=== PATIENT | female | born 1985 | race Caucasian/White ===

== ENCOUNTER → 2017-04-07 | Outpatient (CLI) | payer MEDICAID, OTHER ==
--- NOTE | 2017-04-07 15:00 | US ---
EXAMINATION TYPE: US OB <= 14 wk fetus DATE OF EXAM: 04/07/2017 COMPARISON: NONE CLINICAL HISTORY: O76 ABN OR ABSENT HEART TONES. larger habitus, unable to obtain heart rate at offic e EXAM PERFORMED: Transabdominal (TA) EXAM MEASUREMENTS: GESTATIONAL AGE / DATING Physician Established: not established yet Dates by LMP: (10 weeks/6 days) EDC: 10/28/2017 Dates by First Scan: no previous Dates by Current Scan for: (9 weeks/0 days) EDC: 11/10/2017 MATERNAL ANATOMY Uterus: 12.8 x 6.1 x 8.2cm, antegrade, wnl Right Ovary: 3.5 x 2.2 x 3.0cm, wnl Left Ovary: 2.8 x 1.6 x 1.8cm, wnl Post CDS / Adnexa: wnl Presence of free fluid: none seen GESTATION / SURVEY CRL: 2.3cm (9 weeks/0 days) MSD: wnl Yolk Sac (normal less than 6mm): 5mm Heart Rate: 176 bpm Rhythm: Normal IUP: Viable IUP Date of LMP: 01/21/2017 Single live intrauterine gestation is present as gestational sac, yolk sac, and pole are seen. No free fluid is seen in pelvic cul-de-sac. Both ovaries are identified. No suspicious extra ovarian adnexal mass is seen. IMPRESSION: Single live intrauterine gestation is confirmed, mean crown-rump length is 2.3 cm corresponding to 9 week 0 day old fetus.
== END | disposition home or self-care (01) ==
LOC: RADUSWWP 14:22
PROVIDERS: ATTEND Obstetrics & Gynecology
DX: O76 Abnormality in fetal heart rate and rhythm complicating labor and delivery (principal); Z3A.09 9 weeks gestation of pregnancy
CPT/HCPCS: 76801

== ENCOUNTER → 2017-04-25 | Outpatient (CLI) | payer MEDICAID, OTHER ==
[2017-04-25 12:27] LABS: CH 30.5; CHCM 34.3; HCT 39.8 % (34.0-46.0); HDW 2.56; HGB 13.4 gm/dL (11.4-16.0); MCH 30.1 pg (25.0-35.0); MCHC 33.7 g/dL (31.0-37.0); MCV 89.3 fL (80.0-100.0); Mean Platelet Volume 7.2; RBC 4.46 m/uL (3.80-5.40); WBC 11.1 k/uL (3.8-10.6)
[2017-04-25 12:56] LABS: Hepatitis B Surface Ag Index 0.06
[2017-04-25 15:09] LABS: Hemoglobin A1C 5.3 % (4.2-6.1)
[2017-04-25 15:55] LABS: Treponemal Ab Non-Reactive (Non-Reactive)
== END | disposition home or self-care (01) ==
LOC: LABWHC1 10:39
PROVIDERS: ATTEND Obstetrics & Gynecology
DX: Z34.90 Encounter for supervision of normal pregnancy, unspecified, unspecified trimester (principal)
CPT/HCPCS: 36415; 82950; 83036; 85027; 86762; 86780; 86850; 86900; 86901; 87086; 87340; 87390

== ENCOUNTER → 2017-08-27 | Outpatient (CLI) | payer MEDICAID, OTHER ==
[2017-08-27 12:49] LABS: Glucose 3 Hour, Gest 114 mg/dL
== END | disposition home or self-care (01) ==
LOC: LABWHC1 08:31
PROVIDERS: ATTEND Obstetrics & Gynecology
DX: O24.419 Gestational diabetes mellitus in pregnancy, unspecified control (principal); Z3A.00 Weeks of gestation of pregnancy not specified
CPT/HCPCS: 36415; 82951; 82952

== ENCOUNTER 2017-11-07 07:00 | Inpatient (IN) | payer MEDICAID, OTHER ==
[2017-11-05 14:59] VITALS: BMI 48.7
[2017-11-07] MEDS ORDERED: CITRIC ACID-SODIUM CITRATE 15 ML CUP PO ONE (08:10)
[2017-11-07] MEDS ORDERED: ceFAZolin IN SWFI 2 GM/20 ML SYRINGE IVP ONE (08:30)
[2017-11-07] MEDS: LACTATED RINGERS 1,000 ML IV SCH ×3 (08:55→20:08)
[2017-11-07 09:12] LABS: Basophils % (A) 0 %; Eosinophils # (A) 0.2 k/uL (0-0.7); Eosinophils % (A) 1 %; HCT 31.7 % (34.0-46.0); HGB 10.4 gm/dL (11.4-16.0); Hypochromasia Slight; Lymphocytes % (A) 16 %; MCH 27.7 pg (25.0-35.0); MCHC 32.8 g/dL (31.0-37.0); MCV 84.5 fL (80.0-100.0); Mean Platelet Volume 8.2; Monocytes # (A) 0.7 k/uL (0-1.0); Monocytes % (A) 5 %; Neutrophils # (A) 9.7 k/uL (1.3-7.7); Neutrophils % (A) 76 %; Platelet Count 262 k/uL (150-450); Poikilocytosis Slight; RBC 3.75 m/uL (3.80-5.40); RDW 14.1 % (11.5-15.5); WBC 12.8 k/uL (3.8-10.6)
--- NOTE | 2017-11-07 10:03 | P.HPOB ---
History of Present Illness H&P Date: 11/07/17 Chief Complaint: 39+ weeks, previous 2, undesired fertility The patient is a 32-year-old 3 para 2001 who presents today for repeat low transverse section with intraoperative bilateral tubal occlusion using Filshie clips. She has previously undergone 2 sections and requested repeat. This has been entirely uncomplicated. Group B strep status is negative. She presents at 39-4/7 weeks as established by a 9 week ultrasound. Obstetrical history: 3 para 2001 with 2 term sections without complications. EDC of 11/10/2017 was established by a 9 week ultrasound. Laboratory workup demonstrates a blood type of A+ with a negative antibody screen. Rubella status is immune. Remainder of the laboratory workup was within normal limits. Early Glucola was normal. Second trimester Glucola was elevated but followed up by a normal three-hour glucose tolerance test. Group B strep status is negative. Gynecologic history: Unremarkable with no history of any infections to include STDs. Review of Systems Review of systems is confined to history of present illness. Past Medical History Past Medical History: GERD/Reflux Additional Past Medical History / Comment(s): KIDNEY STONES History of Any Multi-Drug Resistant Organisms: None Reported Past Surgical History: Section Additional Past Surgical History / Comment(s): KIDNEY STONES REMOVED 2009, section x2 Past Anesthesia/Blood Transfusion Reactions: No Reported Reaction Past Psychological History: No Psychological Hx Reported Smoking Status: Never smoker Past Alcohol Use History: None Reported Past Drug Use History: None Reported - Past Family History Mother Family Medical History: No Reported History Father Family Medical History: Diabetes Mellitus, Hyperlipidemia, Hypertension Medications and Allergies Home Medications Medication Instructions Recorded Confirmed Type Omeprazole [PriLOSEC] 20 mg PO AC-BRKFST 11/05/17 11/07/17 History Pnv No.95/Ferrous Fum/Folic AC 1 each PO DAILY 11/05/17 11/07/17 History [ Multivitamin Tablet] Allergies Allergy/AdvReac Type Severity Reaction Status Date / Time No Known Allergies Allergy Verified 11/05/17 14:54 Exam - Vital Signs Vital signs: Vital Signs Temp Pulse Resp BP Pulse Ox 11/07/17 08:14 98.3 F 108 H 16 123/79 98 Intake and Output 03/01/18 03/02/18 03/02/18 22:59 06:59 14:59 Other: Weight 117.027 kg Patient Weight 11/08/17 06:59 Weight 117.027 kg In general, this is a well-developed, moderately obese white female in no acute distress. Her heart has a regular rhythm and rate without murmur. Her lungs are clear to auscultation bilaterally in all alva. Her abdomen is gravid, moderately obese, nondistended, has normal active bowel sounds, is soft, nontender, and without any palpable masses aside from uterine fundus. Her extremities without any cyanosis, clubbing, or significant edema and are nontender to palpation bilaterally. Digital cervical examination is deferred. Results Result Diagrams: 11/07/17 08:55 Abnormal Lab Results - Last 24 Hours (Table) 11/07/17 Range/Units 08:55 WBC 12.8 H (3.8-10.6) k/uL RBC 3.75 L (3.80-5.40) m/uL Hgb 10.4 L (11.4-16.0) gm/dL Hct 31.7 L (34.0-46.0) % Neutrophils # 9.7 H (1.3-7.7) k/uL Assessment and Plan (1) Family planning Current Visit: Yes Status: Acute Code(s): Z30.09 - ENCOUNTER FOR OTH GENERAL CNSL AND ADVICE ON CONTRACEPTION SNOMED Code(s): 870077701 (2) Previous section Current Visit: Yes Status: Acute Code(s): Z98.891 - HISTORY OF UTERINE SCAR FROM PREVIOUS SURGERY SNOMED Code(s): 214628306 (3) Term Current Visit: Yes Status: Acute Code(s): Z34.80 - ENCOUNTER FOR SUPRVSN OF NORMAL , UNSP TRIMESTER SNOMED Code(s): 51599354 Plan: The patient is admitted for repeat low transverse section with intraoperative bilateral tubal occlusion using Filshie clips. The risks and complications of the procedures have been thoroughly discussed including the permanent nature of tubal ligation. She has understood all this and agreed to proceed.
[2017-11-07] MEDS ORDERED: KETOROLAC 30 MG/ML 1 ML VIAL ONE (10:11)
[2017-11-07] MEDS ORDERED: OXYTOCIN 10 UNIT/ML 1 ML VIAL ONE (10:11)
[2017-11-07] MEDS ORDERED: MIDAZOLAM 2 MG/2 ML VIAL ONE (10:11)
[2017-11-07] MEDS ORDERED: ONDANSETRON 4 MG/2 ML VIAL ONE (10:11)
[2017-11-07] MEDS ORDERED: PHENYLEPHRINE-0.9% NACL SYG 1 MG/10 ML SYRINGE ONE (10:11)
[2017-11-07] MEDS ORDERED: MORPHINE SULFATE (PF) 0.3 MG/0.3 ML SYR ONE (10:11)
[2017-11-07] MEDS ORDERED: MORPHINE SULFATE 4 MG/ML SYRINGE IVP PRN (10:54)
[2017-11-07] MEDS ORDERED: KETOROLAC 30 MG/ML 1 ML VIAL IVP PRN (10:54)
[2017-11-07] MEDS ORDERED: NALOXONE 0.4 MG/ML 1 ML VIAL IV PRN ×2 (10:54→11:25)
[2017-11-07] MEDS ORDERED: ONDANSETRON 4 MG/2 ML VIAL IVP PRN (10:54)
[2017-11-07] MEDS ORDERED: NALBUPHINE 10 MG/ML AMPUL IV PRN (10:54)
[2017-11-07] MEDS ORDERED: CELLULOSE,OXIDIZED 1 EACH EACH MISCELLANE ONE (11:02)
[2017-11-07] MEDS ORDERED: diphenhydrAMINE 50 MG/ML 1 ML VIAL IVP PRN ×2 (11:25)
[2017-11-07] MEDS ORDERED: ZOLPIDEM 5 MG TAB PO PRN (11:25)
[2017-11-07] MEDS ORDERED: ACETAMINOPHEN TAB 325 MG TAB PO PRN (11:25)
[2017-11-07] MEDS ORDERED: diphenhydrAMINE 50 MG CAP PO PRN (11:25)
[2017-11-07] MEDS ORDERED: SIMETHICONE 80 MG CHEWABLE PO PRN (11:25)
[2017-11-07] MEDS ORDERED: METOCLOPRAMIDE 5 MG/ML 2 ML VIAL IVP PRN (11:25)
[2017-11-07] MEDS ORDERED: diphenhydrAMINE 25 MG CAP PO PRN (11:25)
[2017-11-07] MEDS ORDERED: Acetaminophen-Codeine 300-30mg TAB PO PRN ×2 (11:25)
[2017-11-07] MEDS ORDERED: OXYTOCIN 20 UNITS/1000 ML NS 1,000 ML IV SCH (11:30)
--- NOTE | 2017-11-07 11:38 | P.OP ---
Date of Procedure: 11/07/17 Preoperative Diagnosis: #1. 39+ weeks intrauterine #2. Previous section 2, requesting repeat #3. Undesired fertility Postoperative Diagnosis: Same plus #4. Adhesive disease Procedure(s) Performed: #1. Repeat low transverse section #2. Intraoperative bilateral tubal occlusion with Filshie clips #3. Adhesio lysis Anesthesia: spinal Surgeon: Warren Brian Waste/Materials Exchange Specialist #1: Sruthi Diop Estimated Blood Loss (ml): 600 IV fluids (ml): 1,500 Urine output (ml): 300 Pathology: other (Placenta) Condition: stable Disposition: floor Operative Findings: Intraoperatively, there was noted to be a significant amount of scarring at the fascia and the rectus muscle level. The rectus muscles were densely adherent in the midline and also adherent to the uterus underneath. After creating a large enough window through which to deliver the infant, she was delivered of a viable 9 lbs. 2 oz. baby girl with Apgars of 9 at 1 minute and 9 at 5 minutes in the right occiput transverse position. The placenta was delivered manually, intact, and grossly normal with a grossly normal three-vessel cord. Following delivery of the infant, a window was noted into the peritoneal cavity allowing isolation of the dense uteroabdominal wall scarring. This was lysed sharply with Travis scissors and cautery making certain that hemostasis was noted. After division of bilateral dense adhesive bands, the bladder peritoneum was noted to be scarred laterally and was then reflected further distally. Closure of the uterus included reapproximating peritoneal surface to peritoneal surface on the uterine incision in order to decrease the risk for further adhesive disease. A piece of Interceed was laid across the incision at the time of closure of the abdomen as well. The fundus of the uterus was normal though there was some scarring on the posterior aspect of the uterus to include the left ovary primarily. The bilateral fallopian tubes were normal and were occluded with a Filshie clip bilaterally. Description of Procedure: The patient was prepped and draped in usual fashion after spinal anesthesia was administered by the anesthesiologist. A Pfannenstiel incision was made through pre-existing scar and extended through to the fascia. The fascia was then dissected from the underlying muscles where there was dense adhesions. The muscles were divided in the midline and we were never able to clearly identify a peritoneal surface. It became apparent that the uterus and the muscles were densely adherent to each other. We were able to divide the muscles lower and beneath the superior portion of the incision and the bladder flap was noted to be distal. A window between the rectus muscles appeared to be large enough to deliver the baby through. As result, a 2 cm incision was made in the transverse plane of the lower uterine segment to enter the uterus at which time clear fluid was noted. The incision was extended bluntly bilaterally. The head was delivered up and through the incision where the nose and mouth were thoroughly suctioned. The remainder of the was delivered onto the field where the cord was doubly clamped, cut, and the infant passed for resuscitative measures with weight and Apgars as noted above. A segment of cord was doubly clamped, cut, and set aside should cord gases become necessary. The placenta was then delivered manually and intact as noted above. The margins of the uterine incision were grasped with Francois clamps and the interior cavity of the uterus swept of any remaining placental or membranous fragments. There was minimal ongoing bleeding at this time. A window was noted in the midline into the peritoneal cavity at the superior aspect of the incision. After enlarging this window we were able to isolate the dense scarring between the uterus and the anterior abdominal wall. Travis scissors and cautery were utilized to detach the 2 from each other at the anterior abdominal wall. Once the dense bands were divided bilaterally the uterus is able to be delivered through the incision. We were then able to identify some peritoneal scarring of the bladder flap which was taken down sharply as well. The uterine incision was then closed in 2 layers of 0 chromic catgut, the first layer being a running locking stitch followed by a running imbricating stitch. Care was taken to attach peritoneal surface to peritoneal surface on the imbricating stitch of the uterine incision in order to decrease the risk for further adhesive disease. The posterior cul-de-sac was then suctioned using a guard. The fallopian tubes were noted to be normal and a Filshie clip was placed across the isthmic portion of each tube and firmly affixed in standard fashion. Prior to placing these, consent was reestablished with the patient. The uterus was then replaced within the abdominal cavity and the gutters swept of any remaining blood, fluid, or clot. All of the areas of previous dissection were then carefully examined and any points of bleeding were made hemostatic with the Bovie. There was one area of bleeding on the rectus muscles on the right side which was made hemostatic with a oxlldo-gf-ajhbw stitch of 0 chromic catgut. Once hemostasis inside the abdomen was secured, the rectus muscles and parietal peritoneum were loosely reapproximated with a loose ucybgq-vi-weopc stitch of 0 chromic catgut. The rectus muscles were then examined and made hemostatic with the Bovie. Prior to closure of the rectus muscles a sheet of Interceed was laid across the uterine incision to attempt to decrease further adhesions as well. Once the rectus muscles were hemostatic, the fascia was closed with 2 running stitches of 0 Vicryl proceeding from lateral margins to midpoint. The subcutaneous tissues were irrigated, made hemostatic with the Bovie, and reapproximated with a running stitch of 30 plain catgut. The skin was reapproximated with a running subcuticular stitch of 4-0 Vicryl followed by half-inch Steri-Strips placed with Mastisol. Estimated blood loss for the entire case was approximate 600 mL. There were no complications. All sponge, instrument, and needle counts were correct. The patient tolerated the procedure well and proceeded to the recovery room in stable condition.
[2017-11-07 13:13] VITALS: RESP 16
[2017-11-07] MEDS: SENNOSIDES-DOCUSATE SODIUM 1 EACH TAB PO SCH (23:28)
[2017-11-08] MEDS: LACTATED RINGERS 1,000 ML IV SCH ×2 (02:31→21:05)
[2017-11-08 07:30] LABS: Basophils % (A) 0 %; Eosinophils # (A) 0.2 k/uL (0-0.7); Eosinophils % (A) 1 %; HCT 30.8 % (34.0-46.0); HGB 9.8 gm/dL (11.4-16.0); Hypochromasia Slight; Lymphocytes # (A) 1.9 k/uL (1.0-4.8); Lymphocytes % (A) 12 %; MCH 27.7 pg (25.0-35.0); MCHC 31.8 g/dL (31.0-37.0); MCV 87.1 fL (80.0-100.0); Mean Platelet Volume 7.7; Monocytes # (A) 0.8 k/uL (0-1.0); Monocytes % (A) 5 %; Neutrophils # (A) 12.2 k/uL (1.3-7.7); Neutrophils % (A) 80 %; Platelet Count 272 k/uL (150-450); Poikilocytosis Slight; RBC 3.53 m/uL (3.80-5.40); RDW 14.1 % (11.5-15.5); WBC 15.2 k/uL (3.8-10.6)
[2017-11-08] MEDS: IBUPROFEN 600 MG TAB PO PRN ×2 (08:07→19:32)
[2017-11-08] MEDS: SENNOSIDES-DOCUSATE SODIUM 1 EACH TAB PO SCH ×2 (08:07→19:33)
--- NOTE | 2017-11-08 10:33 | P.PN ---
Progress Note - Text Progress Note Date: 11/08/17 Postoperative day 1 status post section under spinal anesthesia, and intrathecal morphine given for postoperative analgesia, patient doing well, there is no anesthesia related complications, Patient had no headache, vital signs stable , Assessment and plan= postop day 1 status post , doing well there is no anesthesia related complication.
--- NOTE | 2017-11-08 10:44 | P.PNOBGPC ---
Subjective - Subjective Principal diagnosis: Repeat section Interval history: She had bleeding from her incision noted by the nursing staff this morning. She had completely saturated through the entirety of her dressing and bedding. She denies any specific pain, dizziness, lightheadedness, vaginal bleeding. A pressure dressing was reapplied and currently there is no evidence of ongoing active bleeding or saturation of this dressing that she has noticed. Patient reports: Reports appetite normal, Reports voiding normally, Reports pain well controlled, Reports ambulating normally, Denies dizzy ambulation [place]: doing well Objective - Vital Signs Latest vital signs: Vital Signs Temp Pulse Resp BP Pulse Ox 11/08/17 08:00 98.4 F 87 16 114/69 96 11/08/17 06:00 16 11/08/17 04:00 98.3 F 70 16 90/56 97 11/08/17 01:59 16 11/08/17 00:00 98.8 F 88 16 96/58 96 11/07/17 22:00 16 98 11/07/17 20:00 98.1 F 83 16 104/65 98 11/07/17 17:00 16 11/07/17 15:56 98.0 F 83 16 99/60 11/07/17 15:54 98 11/07/17 15:00 16 11/07/17 13:02 83 16 100/59 11/07/17 12:30 79 17 100/57 98 11/07/17 12:13 72 16 97/52 97 11/07/17 12:00 85 17 95/51 97 11/07/17 11:45 83 17 101/53 97 11/07/17 11:30 97.8 F 95 17 113/57 99 Intake and Output 11/07/17 11/08/17 11/08/17 22:59 06:59 14:59 Intake Total 500 Output Total 600 700 500 Balance -600 -200 -500 Intake: Intake, IV Titration 500 Amount Lactated Ringers 1,000 ml 500 @ 125 mls/hr IV .[facility] Rx#:[id number] Output: Urine 500 700 500 Uretheral (Palafox) 700 Emesis 100 Other: # Voids 0 - Exam Extremities: Present: normal, edema Abdomen: Present: normal appearance, soft Incision: Present: dry, intact, dressed Uterus: Present: normal, firm. Absent: tenderness - Labs Labs: Abnormal Lab Results - Last 24 Hours (Table) 11/08/17 Range/Units 06:56 WBC 15.2 H (3.8-10.6) k/uL RBC 3.53 L (3.80-5.40) m/uL Hgb 9.8 L (11.4-16.0) gm/dL Hct 30.8 L (34.0-46.0) % Neutrophils # 12.2 H (1.3-7.7) k/uL Assessment and Plan (1) Family planning Current Visit: Yes Status: Acute Code(s): Z30.09 - ENCOUNTER FOR OT GENERAL CNSL AND ADVICE ON CONTRACEPTION SNOMED Code(s): 726617077 (2) Previous section Current Visit: Yes Status: Acute Code(s): Z98.891 - HISTORY OF UTERINE SCAR FROM PREVIOUS SURGERY SNOMED Code(s): 354625587 (3) S/P section Current Visit: Yes Status: Acute Code(s): Z98.891 - HISTORY OF UTERINE SCAR FROM PREVIOUS SURGERY SNOMED Code(s): 289192933 (4) Term Current Visit: Yes Status: Acute Code(s): Z34.80 - ENCOUNTER FOR SUPRVSN OF NORMAL , UNSP TRIMESTER SNOMED Code(s): 69457364 Plan: Postop day 1 status post repeat low transverse section with bilateral tubal ligation. Some bleeding from her incision this morning that seems to have resolved. Her postop day 1 hemoglobin is normal. Vital signs are normal. Close monitoring of the incision and wound care discussed with the patient.
[2017-11-09] MEDS: SENNOSIDES-DOCUSATE SODIUM 1 EACH TAB PO SCH (08:15)
[2017-11-09] MEDS: IBUPROFEN 600 MG TAB PO PRN (08:15)
[2017-11-09 08:31] VITALS: BP 114/62; PULSE 88; TEMP 97.7
--- NOTE | 2017-11-09 11:27 | P.DS ---
Providers Date of admission: 11/07/17 08:01 Expected date of discharge: 11/09/17 Attending physician: Warren Brian Primary care physician: Stated None - Discharge Diagnosis(es) (1) Family planning Current Visit: Yes Status: Acute (2) Previous section Current Visit: Yes Status: Acute (3) S/P section Current Visit: Yes Status: Acute (4) Term Current Visit: Yes Status: Acute (5) Obesity Current Visit: Yes Status: Acute (6) Pelvic adhesion, delivered, current hospitalization Current Visit: Yes Status: Acute Hospital Course: This is a 32-year-old 3 now para 3 woman who presented for scheduled repeat low transverse section and bilateral tubal ligation. Please see the admission history and physical for details. Following admission the patient went to the operating room where she underwent repeat low transverse section under spinal anesthetic. Findings at the time of surgery were remarkable for significant pelvic adhesions requiring extensive dissection of adhesions of the uterus to the anterior abdominal wall and rectus muscles. Please see the operative report for details. She was delivered of a liveborn female weighing 9 lbs. 2 oz. with Apgars of 9 at 1 minute and 9 at 5 minutes. The patient's postoperative course was remarkable for some excessive bleeding from the abdominal skin incision on the morning of postoperative day # 1.. This was managed with pressure dressing to the area. Her hemoglobin postoperatively remained stable. This resolved after several hours. Throughout the duration of her stay she had no further heavy vaginal bleeding or abdominal wall bleeding. She was able to ambulate and void without difficulty. She did have some excessive lower extremity edema. Her vital signs were stable. When she was therefore discharged home on postoperative day #2 with routine instructions for postoperative care and follow-up. Procedures: Repeat low transverse section and bilateral tubal ligation, adhesiolysis Patient Condition at Discharge: Good Plan - Discharge Summary Discharge Rx Participant: Yes New Discharge Prescriptions: New Acetaminophen-Codeine 300-30mg [Tylenol w/codeine #3] 2 each PO Q4HR PRN #20 tab PRN Reason: Moderate To Severe Pain Ibuprofen [Motrin] 600 mg PO Q6HR PRN #30 tab PRN Reason: Mild Pain Or Fever >= 100.5 No Action Omeprazole [PriLOSEC] 20 mg PO AC-BRKFST Pnv No.95/Ferrous Fum/Folic AC [ Multivitamin Tablet] 1 each PO DAILY Discharge Medication List Omeprazole [PriLOSEC] 20 mg PO AC-BRKFST 11/05/17 [History] Pnv No.95/Ferrous Fum/Folic AC [ Multivitamin Tablet] 1 each PO DAILY [History] Acetaminophen-Codeine 300-30mg [Tylenol w/codeine #3] 2 each PO Q4HR PRN #20 tab 11/09/17 [Rx] Ibuprofen [Motrin] 600 mg PO Q6HR PRN #30 tab 11/09/17 [Rx] Follow up Appointment(s)/Referral(s): Warren Brian MD [STAFF PHYSICIAN] - 2 Weeks Patient Instructions/Handouts: (DC) Activity/Diet/Wound Care/Special Instructions: Follow-up in 2 weeks after surgery in the office. Call the office with any concerning signs or symptoms including fever greater than 101, severe abdominal pain, heavy vaginal bleeding, signs of wound infection, increased swelling or redness of the lower extremities, signs of depression. No driving for 2 weeks after surgery. No heavy lifting or vigorous activity until reevaluated in the office. No intercourse for 6 weeks after delivery.
== END 2017-11-09 13:20 | disposition home or self-care (01) | DRG 765 ==
LOC: 4FBP 08:01
PROVIDERS: ADMIT Obstetrics & Gynecology; ATTEND Obstetrics & Gynecology
PROC: 0UL70CZ Occlusion of Bilateral Fallopian Tubes with Extraluminal Device, Open Approach (ICD-10-PCS; 2017-11-07)
PROC: 0DNW0ZZ Release Peritoneum, Open Approach (ICD-10-PCS; 2017-11-07)
PROC: 10D00Z1 Extraction of Products of Conception, Low, Open Approach (ICD-10-PCS; principal; 2017-11-07 10:00)
DX: O34.211 Maternal care for low transverse scar from previous cesarean delivery (principal); O99.214 Obesity complicating childbirth; K21.9 Gastro-esophageal reflux disease without esophagitis; O99.89 Other specified diseases and conditions complicating pregnancy, childbirth and the puerperium; N73.6 Female pelvic peritoneal adhesions (postinfective); O99.62 Diseases of the digestive system complicating childbirth; O12.04 Gestational edema, complicating childbirth; Z37.0 Single live birth; Z3A.39 39 weeks gestation of pregnancy; Z68.42 Body mass index [BMI] 45.0-49.9, adult; Z79.899 Other long term (current) drug therapy; Z87.442 Personal history of urinary calculi; Z82.49 Family history of ischemic heart disease and other diseases of the circulatory system; Z83.3 Family history of diabetes mellitus
CPT/HCPCS: 85025; 86850; 86900; 86901; 88307